=== PATIENT | male | born 1955 | race Caucasian/White ===

== ENCOUNTER 2022-08-15 04:01 | Inpatient (IN) | payer OTHER ==
[2022-08-10 10:53] VITALS: BMI 29.0
[2022-08-15 06:42] LABS: INR 0.98 (0.83-1.09); PROTHROMBIN TIME (PATIENT) 11.4 SEC (9.7-13.0)
[2022-08-15 06:45] LABS: ACTIVATED PTT 31.3 SECONDS (25.2-36.5)
[2022-08-15] MEDS ORDERED: BACITRACIN ZINC 15 GM TUBE TOPICAL OINTMENT ONE (07:12)
[2022-08-15] MEDS ORDERED: VANCOMYCIN 1,000 MG VIAL (RESTRICTED TO ID ONLY) ONE ×2 (07:12→10:31)
[2022-08-15] MEDS ORDERED: BUPIVACAINE HCL/PF 0.5% (5MG/ML) 10 ML VIAL ONE ×2 (07:13→10:19)
[2022-08-15] MEDS ORDERED: MIDAZOLAM HCL 2 MG/2 ML SINGLE DOSE VIAL ONE (07:34)
[2022-08-15] MEDS ORDERED: LIDOCAINE HCL/PF 2% SDV 5ML VIAL ONE (07:35)
[2022-08-15] MEDS ORDERED: ROCURONIUM BROMIDE 50 MG/5 ML SYRINGE ONE ×2 (07:50→08:54)
[2022-08-15] MEDS ORDERED: PHENYLEPHRINE HCL 10 MG/1 ML SINGLE DOSE VIAL ONE (07:50)
[2022-08-15] MEDS ORDERED: THROMBIN (BOVINE) 5,000 UNIT VIAL TP ONE ×2 (07:51→08:58)
[2022-08-15] MEDS ORDERED: DEXAMETHASONE SOD PHOSPHATE 4 MG/1 ML VIAL ONE (08:24)
[2022-08-15] MEDS ORDERED: ceFAZolin SODIUM 1 GM VIAL IVPB ONE (08:31)
[2022-08-15] MEDS ORDERED: KETAMINE HCL 500 MG/10 ML VIAL ONE (08:40)
[2022-08-15] MEDS ORDERED: SODIUM CHLORIDE 0.9% P/F 10 ML VIAL IJ ONE (08:41)
[2022-08-15] MEDS ORDERED: VANCOMYCIN 1,000 MG VIAL (RESTRICTED TO ID ONLY) IVPB ONE ×2 (08:58)
[2022-08-15] MEDS ORDERED: ONDANSETRON 4 MG/2 ML VIAL ONE (09:44)
[2022-08-15] MEDS ORDERED: BUPIVACAINE HCL/PF 0.5% (5MG/ML) 10 ML VIAL IJ ONE (10:30)
[2022-08-15] MEDS ORDERED: NEOSTIGMINE METHYLSULFATE 0.5 MG/1 ML - 10 ML MDV ONE (10:56)
[2022-08-15] MEDS ORDERED: GLYCOPYRROLATE 0.2 MG/1 ML VIAL ONE (10:57)
[2022-08-15] MEDS ORDERED: methylPREDNISolone ACET (DEPO) 40 MG/1 ML VIAL NR ONE (11:00)
[2022-08-15] MEDS ORDERED: ACETAMINOPHEN 325 MG TABLET (FP) PO PRN (11:06)
[2022-08-15] MEDS ORDERED: ONDANSETRON 4 MG/2 ML VIAL IVPUSH PRN (11:06)
[2022-08-15] MEDS ORDERED: BISACODYL 10 MG SUPP.RECT RC PRN (11:06)
[2022-08-15] MEDS ORDERED: D5-1/2NS+20 MEQ KCL - 1,000 ML IV SCH (11:15)
[2022-08-15] MEDS ORDERED: BACITRACIN ZINC 15 GM TUBE TOPICAL OINTMENT TP ONE (11:31)
[2022-08-15] MEDS ORDERED: PROPOFOL 20 ML ONE (11:39)
[2022-08-15] MEDS ORDERED: PATIENT'S OWN MEDICATION (NON-FORMULARY) (Semaglutide [Ozempic] 2 MG/0.75 ML Pen.Injctr) SQ SCH (11:45)
[2022-08-15] MEDS ORDERED: ACETAMINOPHEN 1000 MG/100 ML BAG IVPB ONE ×2 (11:56→12:56)
[2022-08-15] MEDS ORDERED: LACTATED RINGERS SOLUTION 1,000 ML IV SCH (12:00)
[2022-08-15] MEDS ORDERED: HYDROmorphone *PCA* 10MG/50ML DISP.SYRIN PCA SCH (12:00)
[2022-08-15] MEDS ORDERED: HYDROmorphone *PCA* 10MG/50ML DISP.SYRIN ONE (12:36)
[2022-08-15] MEDS ORDERED: ACETAMINOPHEN INJECTION 100 ML IVPB ONE (12:52)
[2022-08-15 13:14] LABS: HEMATOCRIT 36.9 % (35.4-49); HEMOGLOBIN 11.6 GM/dL (11.7-16.9); MCH 24.7 pg (25.7-33.7); MCHC 31.4 g/dl (32.0-35.9); MEAN CELL VOLUME 78.7 fl (80-96); MEAN PLT VOLUME 7.9 fl (7.5-11.1); PLATELET COUNT 257 10^3/uL (134-434); RBC 4.69 M/mm3 (4.00-5.60); RDW 16.4 % (11.9-15.9); WHITE BLOOD COUNT 11.4 K/mm3 (4.0-10.0)
[2022-08-15 13:35] LABS: CALCIUM 8.3 mg/dL (8.5-10.1)
[2022-08-15 13:36] LABS: BLOOD UREA NITROGEN 27.6 mg/dL (7-18)
[2022-08-15 13:39] LABS: CREATININE 1.7 mg/dL (0.55-1.3)
[2022-08-15] MEDS: diazePAM 5 MG TABLET PO SCH ×2 (17:44→22:22)
[2022-08-15] MEDS: D5-1/2NS+20 MEQ KCL - 20 MEQ/1,000 ML INFUS.BAG IV SCH (17:44)
[2022-08-15] MEDS: DOCUSATE SODIUM 100 MG CAPSULE (FP) PO SCH ×2 (17:46→22:21)
[2022-08-15] MEDS: INSULIN SLIDING SCALE (NOVOLOG) 1 VIAL SQ SCH ×2 (18:08→22:28)
[2022-08-15] MEDS: CEFAZOLIN 1 GM in DEXTROSE 5%-WATER - 50 ML IVPB SCH (18:23)
[2022-08-15] MEDS: metFORMIN HCL 500 MG TABLET (FP) PO SCH (18:23)
[2022-08-15] MEDS ORDERED: ATORVASTATIN CA 40 MG TABLET (FP) PO SCH (22:00)
[2022-08-15] MEDS ORDERED: GABAPENTIN 300 MG CAPSULE PO SCH (22:00)
[2022-08-16] MEDS: CEFAZOLIN 1 GM in DEXTROSE 5%-WATER - 50 ML IVPB SCH ×2 (01:59→10:08)
[2022-08-16] MEDS: DOCUSATE SODIUM 100 MG CAPSULE (FP) PO SCH ×2 (06:04→15:22)
[2022-08-16] MEDS: diazePAM 5 MG TABLET PO SCH ×2 (06:05→15:22)
[2022-08-16] MEDS: metFORMIN HCL 500 MG TABLET (FP) PO SCH (06:06)
[2022-08-16] MEDS: INSULIN SLIDING SCALE (NOVOLOG) 1 VIAL SQ SCH ×2 (06:16→15:16)
[2022-08-16] MEDS ORDERED: GLIMEPIRIDE 1 MG TABLET PO SCH (07:00)
[2022-08-16 08:03] LABS: BLOOD UREA NITROGEN 20.6 mg/dL (7-18)
[2022-08-16 08:06] LABS: CREATININE 1.2 mg/dL (0.55-1.3)
[2022-08-16] MEDS ORDERED: PANTOPRAZOLE 20 MG TABLET PO SCH (10:00)
[2022-08-16] MEDS ORDERED: PATIENT'S OWN MEDICATION (NON-FORMULARY) (Empagliflozin 25 MG Tablet) PO SCH (10:00)
[2022-08-16] MEDS ORDERED: amLODIPine BESYLATE 10 MG TABLET (FP) PO SCH (10:00)
[2022-08-16] MEDS ORDERED: LISINOPRIL 20 MG TABLET PO SCH (10:00)
[2022-08-16] MEDS ORDERED: CHLORTHALIDONE 25 MG TABLET PO SCH (10:00)
[2022-08-16 14:36] VITALS: BP 145/72; PULSE 98; RESP 18; TEMP 98.9
[2022-08-16] MEDS: D5-1/2NS+20 MEQ KCL - 20 MEQ/1,000 ML INFUS.BAG IV SCH (15:22)
== END 2022-08-16 16:57 | disposition home health service (06) | DRG 460 ==
LOC: J2C 04:01 → EDSTATUS 08:00 → J8W 14:44
PROVIDERS: ADMIT Neurological Surgery; ATTEND Neurological Surgery
PROC: 0SG1071 Fusion of 2 or more Lumbar Vertebral Joints with Autologous Tissue Substitute, Posterior Approach, Posterior Column, Open Approach (ICD-10-PCS; 2022-08-15)
PROC: 00NY0ZZ Release Lumbar Spinal Cord, Open Approach (ICD-10-PCS; 2022-08-15)
PROC: 0SG3071 Fusion of Lumbosacral Joint with Autologous Tissue Substitute, Posterior Approach, Posterior Column, Open Approach (ICD-10-PCS; principal; 2022-08-15 08:00)
DX: M48.061 Spinal stenosis, lumbar region without neurogenic claudication (principal); M54.16 Radiculopathy, lumbar region; M48.07 Spinal stenosis, lumbosacral region; I10 Essential (primary) hypertension; E11.9 Type 2 diabetes mellitus without complications; K21.9 Gastro-esophageal reflux disease without esophagitis; E78.5 Hyperlipidemia, unspecified
CPT/HCPCS: 36415; 72100-TC-FY; 80048; 82565; 82962; 84520; 85027; 85610; 85730; 86850; 86900; 86901; 94760; 97116-GP; 97161-GP; C1776

== ENCOUNTER 2022-08-17 20:26 | Observation (INO) | payer OTHER ==
[2022-08-17] MEDS ORDERED: DEXAMETHASONE SOD PHOSPHATE 10 MG/1 ML VIAL IVPUSH ONE (21:08)
[2022-08-17] MEDS ORDERED: DEXAMETHASONE SOD PHOSPHATE 10 MG/1 ML VIAL ONE (21:13)
[2022-08-17] MEDS ORDERED: HYDROmorphone HCL CARPU-JECT 2 MG/1 ML DISP.SYRIN IVPUSH ONE (21:20)
[2022-08-17] MEDS ORDERED: HYDROmorphone HCl 2 MG/ML VIAL ONE (21:27)
[2022-08-17 21:45] LABS: BASO % 0.5 % (0-2.0); EOS % 0.1 % (0-4.5); HEMATOCRIT 36.2 % (35.4-49); HEMOGLOBIN 11.8 GM/dL (11.7-16.9); LYMPH % 12.7 % (8-40); MCH 25.1 pg (25.7-33.7); MCHC 32.5 g/dl (32.0-35.9); MEAN CELL VOLUME 77.1 fl (80-96); MEAN PLT VOLUME 7.7 fl (7.5-11.1); NEUT % 76.7 % (42.8-82.8); PLATELET COUNT 290 10^3/uL (134-434); RBC 4.69 M/mm3 (4.00-5.60); RDW 17.1 % (11.9-15.9); WHITE BLOOD COUNT 11.3 K/mm3 (4.0-10.0)
[2022-08-17 22:12] LABS: CHLORIDE 100 mmol/L (98-107); SODIUM 136 mmol/L (136-145)
[2022-08-17 22:14] LABS: CALCIUM 8.9 mg/dL (8.5-10.1)
[2022-08-17 22:15] LABS: ALBUMIN 3.5 g/dl (3.4-5.0); ANION GAP 6 MMOL/L (8-16); BLOOD UREA NITROGEN 20.4 mg/dL (7-18); CO2 31 mmol/L (21-32); GLUCOSE,RANDOM 134 mg/dL (74-106)
[2022-08-17 22:18] LABS: CREATININE 1.5 mg/dL (0.55-1.3); SGOT/AST 21 U/L (15-37); SGPT/ALT 18 U/L (13-61)
[2022-08-17 22:19] LABS: BILIRUBIN,TOTAL 1.1 mg/dL (0.2-1); TOT PROT 7.1 g/dl (6.4-8.2)
[2022-08-17 22:21] LABS: ALK PHOS 57 U/L (45-117)
[2022-08-17] MEDS ORDERED: oxyCODONE HCL 5 MG TABLET PO PRN (23:55)
[2022-08-17] MEDS ORDERED: ACETAMINOPHEN 1000 MG/100 ML BAG IVPB ONE (23:56)
[2022-08-18] MEDS ORDERED: morphine SULFATE 4 MG/ML VIAL ONE (00:47)
[2022-08-18] MEDS: morphine SULFATE 4 MG/ML VIAL IVPUSH PRN ×4 (00:50→21:43)
[2022-08-18 04:32] VITALS: BMI 29.5
[2022-08-18] MEDS: INSULIN SLIDING SCALE (NOVOLOG) 1 VIAL SQ SCH ×6 (06:02→21:35)
[2022-08-18] MEDS: LISINOPRIL 20 MG TABLET PO SCH (09:35)
[2022-08-18] MEDS: ENOXAPARIN NA (PORCINE) 40 MG/0.4 ML DISP.SYRIN SQ SCH (09:35)
[2022-08-18] MEDS: amLODIPine BESYLATE 10 MG TABLET (FP) PO SCH (09:35)
[2022-08-18 10:49] LABS: HEMATOCRIT 36.4 % (35.4-49); HEMOGLOBIN 11.7 GM/dL (11.7-16.9); MCH 25.1 pg (25.7-33.7); MCHC 32.2 g/dl (32.0-35.9); MEAN CELL VOLUME 77.7 fl (80-96); MEAN PLT VOLUME 8.3 fl (7.5-11.1); PLATELET COUNT 319 10^3/uL (134-434); RBC 4.68 M/mm3 (4.00-5.60); RDW 16.8 % (11.9-15.9); WHITE BLOOD COUNT 8.9 K/mm3 (4.0-10.0)
[2022-08-18 10:50] LABS: INR 1.15 (0.83-1.09); PROTHROMBIN TIME (PATIENT) 13.3 SEC (9.7-13.0)
[2022-08-18] MEDS: CEPHALEXIN MONOHYDRATE 500 MG CAPSULE (UD) PO SCH ×3 (11:06→23:36)
[2022-08-18] MEDS: CHLORTHALIDONE 25 MG TABLET PO SCH (11:06)
[2022-08-18] MEDS: POLYETHYLENE GLYCOL (HEALTHYLAX) 3350 17 GM PACKET PO SCH (11:06)
[2022-08-18 11:22] LABS: CALCIUM 9.1 mg/dL (8.5-10.1)
[2022-08-18 11:23] LABS: ALBUMIN 3.4 g/dl (3.4-5.0)
[2022-08-18 11:24] LABS: MAGNESIUM 1.7 mg/dL (1.8-2.4)
[2022-08-18 11:25] LABS: BLOOD UREA NITROGEN 27.9 mg/dL (7-18); PHOSPHOROUS 4.8 mg/dL (2.5-4.9)
[2022-08-18 11:26] LABS: CREATININE 1.3 mg/dL (0.55-1.3)
[2022-08-18 11:27] LABS: TOT PROT 7.2 g/dl (6.4-8.2)
[2022-08-18 11:28] LABS: BILIRUBIN,TOTAL 1.1 mg/dL (0.2-1)
[2022-08-18] MEDS ORDERED: MAGNESIUM SULF 50% (8.12 MEQ/2 ML-1 GM VIAL) IVPB ONE (11:58)
[2022-08-18] MEDS ORDERED: INSULIN (NOVOLOG) ASPART 100 UNITS/ML 10ML VIAL ONE (21:18)
[2022-08-18] MEDS: ATORVASTATIN CA 40 MG TABLET (FP) PO SCH (21:30)
[2022-08-18] MEDS ORDERED: POLYETHYLENE GLYCOL (HEALTHYLAX) 3350 17 GM PACKET PO ONE (23:29)
[2022-08-19] MEDS: INSULIN SLIDING SCALE (NOVOLOG) 1 VIAL SQ SCH ×4 (06:57→21:50)
[2022-08-19] MEDS: CEPHALEXIN MONOHYDRATE 500 MG CAPSULE (UD) PO SCH ×4 (06:58→23:27)
[2022-08-19 07:44] LABS: HEMATOCRIT 33.6 % (35.4-49); HEMOGLOBIN 11.2 GM/dL (11.7-16.9); MCH 25.3 pg (25.7-33.7); MCHC 33.2 g/dl (32.0-35.9); MEAN CELL VOLUME 76.1 fl (80-96); MEAN PLT VOLUME 8.1 fl (7.5-11.1); PLATELET COUNT 300 10^3/uL (134-434); RBC 4.41 M/mm3 (4.00-5.60); RDW 16.9 % (11.9-15.9); WHITE BLOOD COUNT 9.9 K/mm3 (4.0-10.0)
[2022-08-19] MEDS ORDERED: ACETAMINOPHEN 325 MG TABLET (FP) PO PRN (07:44)
[2022-08-19 08:12] LABS: CALCIUM 9.2 mg/dL (8.5-10.1)
[2022-08-19 08:13] LABS: BLOOD UREA NITROGEN 34.4 mg/dL (7-18); MAGNESIUM 2.2 mg/dL (1.8-2.4)
[2022-08-19 08:16] LABS: PHOSPHOROUS 2.8 mg/dL (2.5-4.9)
[2022-08-19 08:17] LABS: CREATININE 1.2 mg/dL (0.55-1.3)
[2022-08-19 09:00] LABS: EPI CELLS 1 /uL (0-25.1); HYALINE CASTS 0 /uL (0-3.1); URINE APPEARANCE CLEAR; URINE BACTERIA 2 /uL (0-1359); URINE BILIRUBIN NEGATIVE (NEGATIVE); URINE COLOR YELLOW; URINE GLUCOSE (UA) 3+ (NEGATIVE); URINE KETONE NEGATIVE (NEGATIVE); URINE LEUK ESTERASE NEGATIVE (NEGATIVE); URINE NITRITE NEGATIVE (NEGATIVE); URINE PROTEIN 1+ (NEGATIVE); URINE RBC 4 /uL (0-23.9); URINE UROBILINOGEN 0.2 mg/dL (0.2-1.0); URINE WBC 1 /uL (0-25.8)
[2022-08-19] MEDS: amLODIPine BESYLATE 10 MG TABLET (FP) PO SCH (09:46)
[2022-08-19] MEDS: ENOXAPARIN NA (PORCINE) 40 MG/0.4 ML DISP.SYRIN SQ SCH (09:47)
[2022-08-19] MEDS: oxyCODONE HCL 5 MG TABLET PO PRN ×4 (09:47→23:27)
[2022-08-19] MEDS: LISINOPRIL 20 MG TABLET PO SCH (09:47)
[2022-08-19] MEDS: CHLORTHALIDONE 25 MG TABLET PO SCH (09:48)
[2022-08-19] MEDS: POLYETHYLENE GLYCOL (HEALTHYLAX) 3350 17 GM PACKET PO SCH (09:48)
[2022-08-19] MEDS: GLIMEPIRIDE 1 MG TABLET PO SCH (09:48)
[2022-08-19] MEDS ORDERED: morphine SULFATE 4 MG/ML VIAL IVPUSH PRN (15:56)
[2022-08-19] MEDS: ACETAMINOPHEN 325 MG TABLET (FP) PO SCH ×2 (16:22→23:27)
[2022-08-19] MEDS: PANTOPRAZOLE 20 MG TABLET PO SCH (16:40)
[2022-08-19] MEDS: ATORVASTATIN CA 40 MG TABLET (FP) PO SCH (21:48)
[2022-08-20] MEDS: CEPHALEXIN MONOHYDRATE 500 MG CAPSULE (UD) PO SCH ×2 (07:00→12:30)
[2022-08-20] MEDS: oxyCODONE HCL 5 MG TABLET PO PRN ×2 (07:00→13:32)
[2022-08-20] MEDS: INSULIN SLIDING SCALE (NOVOLOG) 1 VIAL SQ SCH ×2 (07:25→11:50)
[2022-08-20] MEDS: POLYETHYLENE GLYCOL (HEALTHYLAX) 3350 17 GM PACKET PO SCH (09:29)
[2022-08-20] MEDS: GLIMEPIRIDE 1 MG TABLET PO SCH (09:29)
[2022-08-20] MEDS: CHLORTHALIDONE 25 MG TABLET PO SCH (09:29)
[2022-08-20] MEDS: amLODIPine BESYLATE 10 MG TABLET (FP) PO SCH (09:29)
[2022-08-20] MEDS: ENOXAPARIN NA (PORCINE) 40 MG/0.4 ML DISP.SYRIN SQ SCH (09:29)
[2022-08-20] MEDS: LISINOPRIL 20 MG TABLET PO SCH (09:29)
[2022-08-20] MEDS: ACETAMINOPHEN 325 MG TABLET (FP) PO SCH (09:30)
[2022-08-20] MEDS: PANTOPRAZOLE 20 MG TABLET PO SCH (09:31)
[2022-08-20 14:20] VITALS: BP 116/62; PULSE 80; RESP 18; TEMP 97.9
== END 2022-08-20 17:03 | disposition home or self-care (01) ==
LOC: JER 20:26 → JERBED 22:42 → INTOOBSV 22:42 → J6S 08-18 01:54
PROVIDERS: ADMIT Internal Medicine; ATTEND Internal Medicine
PROC: 3E033GC Introduction of Other Therapeutic Substance into Peripheral Vein, Percutaneous Approach (ICD-10-PCS; principal; 2022-08-17)
PROC: 3E023GC Introduction of Other Therapeutic Substance into Muscle, Percutaneous Approach (ICD-10-PCS; 2022-08-17)
PROC: 3E033NZ Introduction of Analgesics, Hypnotics, Sedatives into Peripheral Vein, Percutaneous Approach (ICD-10-PCS; 2022-08-17)
PROC: 3E033NZ Introduction of Analgesics, Hypnotics, Sedatives into Peripheral Vein, Percutaneous Approach (ICD-10-PCS; 2022-08-17)
DX: G89.18 Other acute postprocedural pain (principal); M79.604 Pain in right leg; M54.9 Dorsalgia, unspecified; E11.9 Type 2 diabetes mellitus without complications; I10 Essential (primary) hypertension; E78.5 Hyperlipidemia, unspecified
CPT/HCPCS: 0241U-QW; 36415; 76775-TC; 80048; 80053; 81003; 82550; 82553; 82962; 83735; 84100; 85025; 85027; 85610; 86140; 86850; 86900; 86901; 93005; 93010; 94010; 97116-GP; 97162-GP; 99285-25; G0378; J1100

== ENCOUNTER 2023-08-10 11:30 | Emergency (ER) | payer OTHER ==
[2023-08-10 11:35] VITALS: BP 163/85; PULSE 99; RESP 16; TEMP 98.9; BMI 29.2
[2023-08-10] MEDS ORDERED: METHOCARBAMOL 500 MG TABLET ONE (12:46)
[2023-08-10] MEDS ORDERED: KETOROLAC TROMETHAMINE 30 MG/1 ML VIAL ONE (12:47)
[2023-08-10] MEDS: METHOCARBAMOL 500 MG TABLET PO ONE (12:52)
[2023-08-10] MEDS: KETOROLAC TROMETHAMINE 30 MG/1 ML VIAL IM ONE (12:52)
[2023-08-10 13:19] LABS: BASO % 0.8 % (0-2.0); EOS % 3.7 % (0-4.5); HEMATOCRIT 46.2 % (35.4-49); HEMOGLOBIN 14.5 GM/dL (11.7-16.9); LYMPH % 23.7 % (8-40); MCH 24.5 pg (25.7-33.7); MCHC 31.4 g/dl (32.0-35.9); MEAN PLT VOLUME 7.1 fl (7.5-11.1); MONO % 8.4 % (3.8-10.2); NEUT % 63.4 % (42.8-82.8); PLATELET COUNT 258 10^3/uL (134-434); RBC 5.92 M/mm3 (4.00-5.60); RDW 24.6 % (11.9-15.9); WHITE BLOOD COUNT 6.3 K/mm3 (4.0-10.0)
[2023-08-10 13:21] LABS: INR 0.9 (0.83-1.09); PROTHROMBIN TIME (PATIENT) 10.5 SEC (9.7-13.0)
[2023-08-10 13:24] LABS: ACTIVATED PTT 32.2 SECONDS (25.2-36.5)
[2023-08-10 13:30] LABS: POTASSIUM 4.2 mmol/L (3.5-5.1)
[2023-08-10 13:32] LABS: CALCIUM 9.9 mg/dL (8.5-10.1)
[2023-08-10 13:33] LABS: ALBUMIN 4.4 g/dl (3.4-5.0); BLOOD UREA NITROGEN 22.1 mg/dL (7-18)
[2023-08-10 13:36] LABS: CREATININE 1.5 mg/dL (0.55-1.3)
[2023-08-10 13:37] LABS: TOT PROT 7.8 g/dl (6.4-8.2)
[2023-08-10 13:38] LABS: BILIRUBIN,TOTAL 0.7 mg/dL (0.2-1)
[2023-08-10] MEDS ORDERED: HYDROmorphone HCl 2 MG/ML VIAL ONE (13:38)
[2023-08-10] MEDS: HYDROmorphone HCl 2 MG/ML VIAL IVPUSH STA (13:51)
[2023-08-10 14:28] LABS: ANISOCYTOSIS 3+; MACROCYTOSIS 0
[2023-08-10] MEDS: SODIUM CHLORIDE 0.9% 500 ML INFUS.BAG IV STA (14:38)
[2023-08-10 15:15] LABS: MAGNESIUM 1.9 mg/dL (1.8-2.4)
[2023-08-10 15:19] LABS: PHOSPHOROUS 3.2 mg/dL (2.5-4.9)
== END 2023-08-10 16:25 | disposition home or self-care (01) ==
LOC: JER 11:30
PROC: 3E033NZ Introduction of Analgesics, Hypnotics, Sedatives into Peripheral Vein, Percutaneous Approach (ICD-10-PCS; principal; 2023-08-10)
PROC: 3E0233Z Introduction of Anti-inflammatory into Muscle, Percutaneous Approach (ICD-10-PCS; 2023-08-10)
DX: M54.50 Low back pain, unspecified (principal); M79.662 Pain in left lower leg; N17.9 Acute kidney failure, unspecified
CPT/HCPCS: 36415; 80053; 83735; 84100; 85025; 85610; 85730; 93970-TC; 99284-25

== ENCOUNTER 2023-08-13 12:10 | Emergency (ER) | payer OTHER ==
[2023-08-13 12:16] VITALS: BP 119/64; PULSE 82; RESP 18; TEMP 97.8; BMI 29.2
[2023-08-13] MEDS ORDERED: LIDOCAINE 4% PATCH TP ONE (13:22)
[2023-08-13] MEDS: LIDOCAINE 4% PATCH TP ONE (13:28)
[2023-08-13 13:43] LABS: EOS % 4.4 % (0-4.5); HEMATOCRIT 40.5 % (35.4-49); HEMOGLOBIN 13.3 GM/dL (11.7-16.9); LYMPH % 32.3 % (8-40); MCH 25.4 pg (25.7-33.7); MCHC 32.8 g/dl (32.0-35.9); MEAN CELL VOLUME 77.6 fl (80-96); MEAN PLT VOLUME 7.5 fl (7.5-11.1); MONO % 11.3 % (3.8-10.2); PLATELET COUNT 240 10^3/uL (134-434); RBC 5.23 M/mm3 (4.00-5.60); WHITE BLOOD COUNT 4.9 K/mm3 (4.0-10.0)
[2023-08-13 14:06] LABS: POTASSIUM 4.2 mmol/L (3.5-5.1)
[2023-08-13 14:08] LABS: CALCIUM 9.7 mg/dL (8.5-10.1)
[2023-08-13 14:09] LABS: ALBUMIN 3.8 g/dl (3.4-5.0)
[2023-08-13 14:12] LABS: CREATININE 1.6 mg/dL (0.55-1.3)
[2023-08-13 14:13] LABS: BILIRUBIN,TOTAL 0.4 mg/dL (0.2-1); TOT PROT 7.2 g/dl (6.4-8.2)
[2023-08-13 14:54] LABS: ANISOCYTOSIS 2+; MACROCYTOSIS 0; OVALOCYTE 1+
[2023-08-13] MEDS ORDERED: LIDOCAINE PATCH REMOVAL MC SCH (22:00)
== END 2023-08-13 16:14 | disposition home or self-care (01) ==
LOC: JER 12:10
DX: M54.50 Low back pain, unspecified (principal); M54.16 Radiculopathy, lumbar region; X50.0XXA Overexertion from strenuous movement or load, initial encounter
CPT/HCPCS: 36415; 72131-TC; 80053; 85025; 99284-25